=== PATIENT | female | born 2000 | race American Indian/Alaskan Native ===

== ENCOUNTER 2021-10-30 19:40 | Emergency (ER) | payer OTHER ==
[2021-10-30] MEDS ORDERED: LIDOCAINE 1.5% /EPINEPHRINE 1:200,000 AMP (5 ML) INFILTRATI ONE (23:36)
[2021-10-30] MEDS ORDERED: HYDROcodone/ACETAMINOPHEN 5-325 MG TAB PO ONE (23:38)
[2021-10-30 23:55] VITALS: BP 133/73
--- NOTE | 2021-10-31 01:44 | Emergency Department Report ---
ED Laceration HPI - HPI Chief Complaint: Wound/Laceration Stated Complaint: RIGHT HAND LAC Occurred When: Today Location: Upper Extremity Severity: mild, moderate Tetanus Status: Up to Date Laceration Symptoms: Yes Pain, No Foreign Body Sensation, No Numbness, No Weakness Other History: Was trying to cut something on a can and accidentally sliced her thumb resulting in pain and bleeding ED Review of Systems ROS: Stated complaint: RIGHT HAND LAC Other details as noted in HPI Comment: All other systems reviewed and negative ED Past Medical Hx - Social History Smoking Status: Never Smoker Substance Use Type: None - Medications Home Medications: Home Medications Medication Instructions Recorded Confirmed Last Taken Type Chlorhexidine Gluconate [Hibiclens] 10 ml TP BID #240 10/31/21 Unknown Rx cephALEXin [Keflex] 500 mg PO Q8HR #21 cap 10/31/21 Unknown Rx Laceration Physical Exam - Exam General: Vital signs noted. No distress. Alert and acting appropriately. Laceration Location: Upper Extremity Full Body Front + Back: 1 - Right thumb laceration 2 cm palmar side to arc like Laceration Exam: Yes Normal Distal CMS, No Foreign Body, No Exposed Tendon, Vessel, or Nerve, No Tendon Injury ED Course Vital Signs 10/30/21 10/30/21 22:03 23:53 Temperature 99.4 F 97.9 F Pulse Rate 92 H 66 Respiratory 18 15 Rate Blood Pressure 133/85 Blood Pressure 133/73 [Left] O2 Sat by Pulse 100 100 Oximetry - Laceration /Wound Repair Right Finger Wound Location: upper extremity Wound Length (cm): 2 Wound's Depth, Shape: irregular Betadine Prep?: No Anesthesia: 1% Lidocaine Volume Anesthetic (ccs): 10 Wound Debrided: minimal Wound Repaired With: sutures Suture Size/Type: 5:0 Critical care attestation.: If time is entered above; I have spent that time in minutes in the direct care of this critically ill patient, excluding procedure time. ED Disposition Clinical Impression: Thumb laceration Disposition: 01 HOME / SELF CARE / HOMELESS Is pt being admited?: No Does the pt Need Aspirin: No Condition: Stable Instructions: Laceration Care, Adult Additional Instructions: Please follow-up in 10 to 12 days to be evaluated for possible suture removal Prescriptions: Chlorhexidine Gluconate [Hibiclens] 10 ml TP BID #240 cephALEXin [Keflex] 500 mg PO Q8HR #21 cap Referrals: MELINDA MALCOLM MD [Primary Care Provider] - 3-5 Days
== END 2021-10-31 01:38 | disposition home or self-care (01) ==
LOC: ED 19:40
DX: S61.011A Laceration without foreign body of right thumb without damage to nail, initial encounter (principal); W45.8XXA Other foreign body or object entering through skin, initial encounter; Y93.89 Activity, other specified; Y92.89 Other specified places as the place of occurrence of the external cause; Y99.8 Other external cause status
CPT/HCPCS: 12001; 99282; J8610